=== PATIENT | male | born 1935 | race Caucasian/White ===

== ENCOUNTER 2024-12-19 05:45 | Day surgery (SDC) | payer MEDICARE, BC, SELFPAY ==
--- NOTE | 2024-12-16 07:00 | EKG_ITS ---
[facility] Test Date: 2024-12-16 Pat Name: OSIEL DUMAS Department: Room: - Gender: Male Metals Analyst: OTF : 1935 Requested By: Jensen Walker Order Number: [id number] Sonia MD: Jensen Walker Measurements Intervals [place] Rate: 56 P: 57 VT: 181 QRS: -59 QRSD: 157 T: 18 QT: 429 QTc: 416 Interpretive Statements SINUS BRADYCARDIA WITH SINUS ARRHYTHMIA RIGHT BUNDLE BRANCH BLOCK [120+ ms QRS DURATION, UPRIGHT V1, 40+ ms S IN I/aVL/V4/V5/V6] LEFT ANTERIOR FASCICULAR BLOCK [QRS AXIS <= -45, QR IN I, RS IN II] VOLTAGE CRITERIA FOR LVH [MEETS CRITERIA IN ONE OF: R(aVL), S(V1), R(V5), R(V5/V6)+S(V1)] ANTEROSEPTAL MYOCARDIAL INFARCTION , OF INDETERMINATE AGE [40+ ms Q WAVE IN V1-V4] No previous ECG available for comparison /[id number]
[2024-12-16 10:46] VITALS: BMI 26.7
[2024-12-16 13:42] LABS: Alanine Aminotransferase < 7 U/L (10-49); Albumin, Serum 4.1 gm/dL (3.4-4.8); Albumin/Globulin Ratio 1.7 (1.2-2.2); Alkaline Phosphatase 87 U/L (46-116); Anion Gap 6 (7-16); Aspartate Amino Transferase 21 U/L (0-34); BUN/Creatinine Ratio 11 Ratio (12-20); Bilirubin,Total 0.6 mg/dL (0.3-1.2); Blood Urea Nitrogen 10 mg/dL (9-23); Calcium 9.2 mg/dL (8.3-10.6); Calcium (Corrected) 9.2 mg/dL (8.5-10.1); Carbon Dioxide 27.4 mMol/L (20.0-31.0); Chloride 108 mMol/L (98-107); Creatinine (Component) 0.9 mg/dL (0.6-1.3); Estimated Creatinine Clearance 53.8 mL/min (>60); Globulin 2.4 gm/dL (2.3-3.5); Glucose 101 mg/dL (74-106); Osmolality,Calculated 280 (275-295); Sodium 141 mMol/L (136-145); Total Protein 6.5 gm/dL (5.7-8.2); eGFR > 60 See Note
--- NOTE | 2024-12-17 08:21 | SUR.PREOP ---
Cardiac history and records reviewed with Dr Aquino.
[2024-12-19] VITALS (10 sets, daily range): BP systolic 127–166; BP diastolic 68–98; PULSE 54–71; RESP 14–20; TEMP 36.2–36.6; O2SAT 95–98; BMI 27.3
[2024-12-19] MEDS: DEXAMETHASONE SOD PHOS INJ 10 MG/ML VIAL 8 MG IV (07:21)
[2024-12-19] MEDS: RINGERS LACTATED 1000 ML 1,000 ML 20 ML IV (07:25)
--- NOTE | 2024-12-19 10:19 | XR_ITS ---
Examination: Skull series 2 views TECHNIQUE: Kj sagittal oblique skull series 2 views Exam date and time: December 19, 2024 1049 hours INDICATIONS: Postop cochlear implant today FINDINGS: Satisfactory position cochlear implant lead Intact cranial vault IMPRESSION: Satisfactory position cochlear implant lead
--- NOTE | 2024-12-19 10:20 | SUR.PHASEI ---
1020: Pt. AAOx4, vitals stable, breathing unlabored, no complaint of pain or nausea, dressing to right ear CDI, no active bleed noted, report received from Darrick FUNG and MD Melgoza.
--- NOTE | 2024-12-19 10:23 | ESOP_ITS ---
Date of Procedure 12/19/24 Pre Op Diagnosis Bilateral profound sensorineural hearing loss Post Op Diagnosis Bilateral profound sensorineural hearing loss Procedure Right cochlear implantation with mastoidectomy and facial nerve monitoring Findings Normal mastoid and middle ear anatomy Procedure Description Indications: This is an 89-year-old male with profound sensorineural hearing loss with limited benefit from hearing aids. Treatment options were discussed. He did qualify for insertion of cochlear implant with an [place] bio score of 27%. Risk of the procedure as well as anticipated outcomes were discussed and he wished to proceed. Patient was marked and shaved in the preoperative setting and then transferred to the operative suite where he was anesthetized and intubated. Patient was sterilely prepped and draped after inserting facial nerve monitoring electrodes in the standard fashion for the right ear. Timeout was performed. Postauricular incision was formed in the usual fashion and the ear turn forward. Posterior and anterior flaps were created. A palpable flap was elevated as well. A pocket was created posteriorly for the internal network communications engineer. A pocket was created anteriorly for the ground electrode as well. Canal wall up mastoidectomy was then performed sending the posterior canal. The dissection was kept anterior to the sigmoid sinus and inferior to the tegmen. There were multiple air cells present. Dissection was carried down until the aditus region and horizontal canal were identified. The bone was thinned out till the body of the incus was visualized superiorly. Chorda facial angle was then opened up first with a #4 and then switching down to a 2 felicity and a 1.5 felicity. The stapes superstructure was identified and the round window niche was identified inferior to that. The notch was drilled back with 1.5 and then later a 1 mm bur in order to get adequate visualization for insertion. Irrigation was used throughout the drilling process. Facial nerve was identified and usual course and confirmed with the nerve stimulator. The chorda tympani nerve was identified and preserved as well. The network communications engineer well was then drilled with a 4 mm bur along with the channel. The monopolar cautery was turned off. The field was irrigated with warm saline solution and suction. The implant was brought into the field after opening up the round window membrane. The implant initially did not want to insert round window niche was drilled back further superiorly and posteriorly with a 1 mm cochleostomy bur. This allowed the implant to slide in. About half-way in I started meeting some resistance and just carefully methodically continued inserted into the near full insertion. The palva flap was closed and neuro metric responses were obtained. All ground electrodes were active but there was an error signal indicating that there may have been some kinking of the implant electrode. After conferring with the rep it was mutual decision to withdraw the electrode and reinsert. In doing so there was some kinking and twisting on the proximal portion of the electrode. I felt that the electrode may have been compromised and so we went to the backup electrode. This electrode was inserted without difficulty to a full insertion. Fat plug was placed around it and the pelvic flap closed again. Neuro metric responses were all good at this time. Continued with the skin closure with a running subcuticular stitch and then Dermabond on the skin. Anesthesia GET[employer] Implants Cochlear implant model CI 22 serial #[id number] Pathology / specimen None Estimated Blood Loss 10 Surgeon Jensen Ontiveros DO Surgical Staff Operation Date: 12/19/24 07:30 Case Staff Anesthesiologist: Surya Melgoza
[2024-12-19] MEDS: fentaNYL CIT INJ 50 mCg/ML AMP 2ML 25 MCG IV (10:39)
[2024-12-19] MEDS: ACETAMINOPHEN IVPB 1,000 MG/100 ML VIAL 250 MG IV (10:40)
[2024-12-19] MEDS: ONDANSETRON INJ 2 MG/ML INJ 2 ML 4 MG IV (11:25)
[2024-12-19] MEDS: METOCLOPRAMIDE INJ 5 MG/ML VIAL 2 ML 10 MG IVP (11:40)
--- NOTE | 2024-12-19 11:55 | SUR.PHASEII ---
1155: Pt. AAOx4, vitals stable, breathing unlabored, no complaint of pain or nausea, dressing to right ear CDI, no active bleed noted, pt. tolerated sips of water well, pt. ambulated to wheelchair with steady gait and no assist, no complications. Gave discharge instructions to the pt. and his ride, both verbalized understanding and had no further questions. Pt. left with all personal belongings.
== END 2024-12-19 11:55 | disposition home or self-care (01) ==
PROVIDERS: Referring Provider Otolaryngology; Visit Provider Otolaryngology
PROC: (CPT 69930; principal; 2024-12-19 07:30)
DX: H90.3 Sensorineural hearing loss, bilateral (principal)
CPT/HCPCS: 69930; 36415; 70250; 80053; 93005; A4217; A4649; J0131; J0171; J0690; J1100; J2405; J2704; J2765; J3010; J3473; J3490; J7040; J7120; L8614; L8690; Q9968; A9270